=== PATIENT | male | born 1990 | race Caucasian/White ===

== ENCOUNTER 2020-04-02 12:39 | Emergency (ER) | payer SELFPAY ==
--- NOTE | 2020-04-02 13:08 | EDM.PDOC ---
ED HPI GENERAL MEDICAL PROBLEM - General Chief Complaint: Cardiovascular Problem Stated Complaint: CHEST PAIN X 4-5 DAYS Time Seen by Provider: 04/02/20 12:53 Source of Information: Reports: Patient, RN Notes Reviewed History Limitations: Reports: No Limitations - History of Present Illness INITIAL COMMENTS - FREE TEXT/NARRATIVE: Patient is a 29-year-old male who presents to the ED for evaluation of his left- sided chest discomfort. Patient states this is been present for the last for 5 days, he describes this as a sharp pain in his left chest, and has some numbness /tingling that radiates into his left arm all the way to his fingertips. Patient complains of no modifiers, he does not note anything that makes it necessarily worse or better. Patient states today that he did have a little bit of nausea, and felt some lightheadedness like he was get a pass out. He did try to take some Aleve this morning and this did not seem to help much. Patient notes he has not had a history of anything like this before. He states he is obese, but has no other past medical history other than cyclic vomiting syndrome when he was younger. He does not have a regular provider, nor does he take any other regular medications. Patient denies any other early cardiac demise in his family. He notes he was told by his mother that his father had fluid on the heart, and that his maternal grandfather had a pacemaker placed. - Related Data Allergies Allergy/AdvReac Type Severity Reaction Status Date / Time No Known Allergies Allergy Verified 04/02/20 12:48 Home Meds: Home Meds . [No Known Home Meds] 04/02/20 [History] Past Medical History Gastrointestinal History: Reports: Other (See Below) Other Gastrointestinal History: Pt reports history of CVS--cyclic vomting syndrome. Had a procedure about age 10-14 - Past Surgical History HEENT Surgical History: Reports: Other (See Below) Other HEENT Surgeries/Procedures: wisdom teeth removed Social & Family History - Tobacco Use Smoking Status *Q: Never Smoker - Caffeine Use Caffeine Use: Reports: None - Recreational Drug Use Recreational Drug Use: Yes Drug Use in Last 12 Months: No Recreational Drug Type: Reports: Marijuana/Hashish ED ROS GENERAL - Review of Systems Review Of Systems: See Below Constitutional: Denies: Fever, Chills Respiratory: Denies: Shortness of Breath, Cough Cardiovascular: Reports: Chest Pain (Left sided chest pain/sternal chest pain). Denies: Dyspnea on Exertion GI/Abdominal: Reports: Constipation (pt reports that he feels like he is slightly constipated), Nausea. Denies: Abdominal Pain, Diarrhea, Vomiting Neurological: Reports: Tingling (down entire left arm) ED EXAM, GENERAL - Physical Exam Exam: See Below Exam Limited By: No Limitations General Appearance: Alert, WD/WN, No Apparent Distress Nose: Normal Inspection Throat/Mouth: Normal Inspection, Normal Lips, Normal Teeth, Normal Gums, Normal Oropharynx, Normal Voice, No Airway Compromise Head: Atraumatic, Normocephalic Neck: Normal Inspection, Supple, Non-Tender, Full Range of Motion Respiratory/Chest: No Respiratory Distress, Lungs Clear, Normal Breath Sounds, No Accessory Muscle Use, Other (R chest tender in his sternum with palpation of 3-4th rib distribution.) Cardiovascular: Normal Peripheral Pulses, Regular Rate, Rhythm, No Edema, No Murmur Extremities: Normal Inspection, Normal Capillary Refill Neurological: Alert, Oriented, Normal Cognition, No Motor/Sensory Deficits Psychiatric: Normal Affect, Normal Mood Skin Exam: Warm, Dry, Intact, Normal Color, No Rash EKG INTERPRETATION EKG Date: 04/02/20 Time: 13:10 Rhythm: NSR Rate (Beats/Min): 68 [place]: Normal P-Wave: Present QRS: Normal ST-T: Normal QT: Normal Comparison: NA - No Prior EKG EKG Interpretation Comments: No obvious ischemia or acute ST changes noted, reviewed by myself and Dr. Mosley. Course - Vital Signs Last Recorded V/S: Last Vital Signs Temp 98.0 F 04/02/20 12:48 Pulse 73 04/02/20 12:48 Resp 19 04/02/20 12:48 BP 125/79 04/02/20 12:48 Pulse Ox 100 04/02/20 12:48 - Orders/Labs/Meds Orders: Active Orders 24 hr Category Date Time Status EKG Documentation Completion [RC] STAT Care 04/02/20 12:54 Ordered Labs: Laboratory Tests 04/02/20 04/02/20 Range/Units 13:38 13:38 WBC 7.14 (4.23-9.07) K/mm3 RBC 4.98 (4.63-6.08) M/mm3 Hgb 14.7 (13.7-17.5) gm/dl Hct 43.7 (40.1-51.0) % MCV 87.8 (79.0-92.2) fl MCH 29.5 (25.7-32.2) pg MCHC 33.6 (32.2-35.5) g/dl RDW Std Deviation 43.3 (35.1-43.9) fL Plt Count 299 (163-337) K/mm3 MPV 9.8 (9.4-12.3) fl Neut % (Auto) 70.9 H (34.0-67.9) % Lymph % (Auto) 22.3 (21.8-53.1) % Rhea % (Auto) 4.3 L (5.3-12.2) % Eos % (Auto) 1.8 (0.8-7.0) Baso % (Auto) 0.4 (0.1-1.2) % Neut # (Auto) 5.06 (1.78-5.38) K/mm3 Lymph # (Auto) 1.59 (1.32-3.57) K/mm3 Rhea # (Auto) 0.31 (0.30-0.82) K/mm3 Eos # (Auto) 0.13 (0.04-0.54) K/mm3 Baso # (Auto) 0.03 (0.01-0.08) K/mm3 Sodium 140 (136-145) mEq/L Potassium 4.3 (3.5-5.1) mEq/L Chloride 104 (98-107) mEq/L Carbon Dioxide 27 (21-32) mEq/L Anion Gap 13.3 (5-15) BUN 14 (7-18) mg/dL Creatinine 1.0 (0.7-1.3) mg/dL Est Cr Clr Drug Dosing 120.71 mL/min Estimated GFR (MDRD) > 60 (>60) mL/min BUN/Creatinine Ratio 14.0 (14-18) Glucose 102 (74-106) mg/dL Calcium 9.3 (8.5-10.1) mg/dL Total Bilirubin 0.5 (0.2-1.0) mg/dL AST 18 (15-37) U/L ALT 24 (16-63) U/L Alkaline Phosphatase 58 (46-116) U/L Troponin I < 0.017 (0.00-0.056) ng/mL Total Protein 7.6 (6.4-8.2) g/dl Albumin 4.0 (3.4-5.0) g/dl Globulin 3.6 gm/dL Albumin/Globulin Ratio 1.1 (1-2) - Re-Assessments/Exams Free Text/Narrative Re-Assessment/Exam: 04/02/20 13:09 Patient presents to the ED for his left-sided chest pain. Have ordered EKG, basic labs and a chest x-ray for further evaluation. Highly suspect this could be musculoskeletal, or costochondritis in nature. 04/02/20 13:50 Chest x-ray has been performed, and demonstrates no acute changes, official radiology read is pending. EKG was also obtained and demonstrates normal sinus rhythm with no acute ST or other ischemic change noted. EKG was reviewed by myself and Dr. Mosley. Departure - Departure Time of Disposition: 14:21 Disposition: Home, Self-Care 01 Condition: Good Clinical Impression: Costochondral chest pain Instructions: Chest Wall Pain, [id number] Referrals: PCP,None [Primary Care Provider] - Forms: ED Department Discharge Additional Instructions: You were evaluated in the ER today for your left-sided chest discomfort. You had some labs drawn, EKG and a chest x-ray done, these demonstrated no worrisome findings, EKG was within normal limits as well as your blood work. There is no identifiable cardiac etiology of your chest pain at today's visit. Your physical exam is consistent with costochondritis, which is an inflammation of the rib lining in your chest, recommend you take 600 mg ibuprofen every 6 hours over the next few days to see if this does not help relieve some of the symptoms. recommend you set up care with a primary care physician for follow-up care and management of your health. Please call [phone] and set up with your family practice provider of your choosing. Please return to the ER at any time if symptoms change or worsen. Sepsis Event Note - Evaluation Sepsis Screening Result: No Definite Risk - Focused Exam Vital Signs: Vital Signs Temp Pulse Resp BP Pulse Ox 04/02/20 12:48 98.0 F 73 19 125/79 100 Date Exam was Performed: 04/02/20 Time Exam was Performed: 14:21 - My Orders Last 24 Hours: My Active Orders 04/02/20 12:54 EKG Documentation Completion [RC] STAT - Assessment/Plan Last 24 Hours: My Active Orders 04/02/20 12:54 EKG Documentation Completion [RC] STAT
--- NOTE | 2020-04-02 14:14 | CR ---
Chest: 2 views of the chest were obtained. Comparison: No previous chest imaging. Minimal nodule is noted within the right upper lung measuring around 2-3 mm. Lungs otherwise are clear. Bony structures are unremarkable. Impression: 1. Small nodule within the right upper lung most likely due to granuloma. 2. Nothing acute is appreciated on 2 view chest x-ray. Diagnostic code #2 This report was dictated in MDT
== END 2020-04-02 14:38 | disposition home or self-care (01) ==
LOC: JD.ED 12:39
DX: R07.89 Other chest pain (principal)
CPT/HCPCS: 36415; 71046; 71046-26; 80053; 84484; 85025; 93005; 93010; 99283; 99285-25